=== PATIENT | female | born 1990 | race Caucasian/White ===

== ENCOUNTER 2020-04-01 11:25 | Emergency (ER) | payer BC ==
[~2020-04-01 11:25] MED LIST: LODINE CAP 300300 MG PO
[2020-04-01 12:03] LABS: HEMOGLOBIN 12.4 gm/dl (12.3-15.3); RED BLOOD COUNT 4.43 M/UL (4.00-5.10); WHITE BLOOD COUNT 9.7 K/UL (4.5-11.0)
[2020-04-01 12:27] LABS: BUN/CREATININE RATIO 16 (0-10)
[2020-04-01] MEDS ORDERED: KEPPRA1000 MG PO (15:36)
== END 2020-04-01 15:48 | disposition home or self-care (01) ==
LOC: ER1 11:25
PROVIDERS: Student in an Organized Health Care Education/Training Program
DX: R56.9 Unspecified convulsions (principal)
CPT/HCPCS: 70450; 80053; 81001; 82550; 82553; 83735; 83874; 84100; 84484; 84702; 85025; 85610; 85730; 93005; 96365; 96375; 99285; J1885; J1953; J2765

== ENCOUNTER 2020-04-16 22:41 | Emergency (ER) | payer BC ==
[~2020-04-16 22:41] MED LIST changes: +KEPPRA1000 MG PO
== END 2020-04-17 00:40 | disposition home or self-care (01) ==
LOC: ER1 22:41
DX: A87.9 Viral meningitis, unspecified (principal); G93.40 Encephalopathy, unspecified; H93.3X3 Disorders of bilateral acoustic nerves; Z79.899 Other long term (current) drug therapy; Z88.0 Allergy status to penicillin; Z88.2 Allergy status to sulfonamides; Z88.1 Allergy status to other antibiotic agents
CPT/HCPCS: 99282

== ENCOUNTER 2020-04-19 20:46 | Emergency (ER) | payer BC ==
[2020-04-19 21:26] LABS: HEMOGLOBIN 12.2 gm/dl (12.3-15.3); RED BLOOD COUNT 4.34 M/UL (4.00-5.10); WHITE BLOOD COUNT 7.3 K/UL (4.5-11.0)
[2020-04-19 21:46] LABS: BUN/CREATININE RATIO 14 (0-10)
[2020-04-20] MEDS ORDERED: VIMPAT100 MG PO (06:08)
== END 2020-04-20 06:49 | disposition home or self-care (01) ==
LOC: ER1 20:46
PROVIDERS: Emergency Medicine
DX: G40.909 Epilepsy, unspecified, not intractable, without status epilepticus (principal); Z88.0 Allergy status to penicillin; Z88.2 Allergy status to sulfonamides
CPT/HCPCS: 70450; 71045; 80053; 80307; 81001; 82550; 82553; 83605; 83690; 83735; 83874; 83880; 84100; 84439; 84443; 84484; 84703; 85025; 85610; 85730; 87040; 93005; 96365; 96367; 96375; 99285; G0480; J1953; J2060

== ENCOUNTER 2021-05-21 13:00 | Emergency (ER) | payer OTHER ==
[~2021-05-21 13:00] MED LIST changes: +VIMPAT100 MG PO
[2021-05-21 14:32] LABS: HEMOGLOBIN 11.6 gm/dl (12.3-15.3); RED BLOOD COUNT 4.47 M/UL (4.00-5.10); WHITE BLOOD COUNT 10.3 K/UL (4.5-11.0)
[2021-05-21 14:59] LABS: BUN/CREATININE RATIO 16 (0-10)
[2021-05-21] MEDS ORDERED: CYCLOBENZAPRINE10 MG PO (16:29)
[2021-05-21] MEDS ORDERED: MACROBID 100 M100 MG PO (16:29)
== END 2021-05-21 16:55 | disposition home or self-care (01) ==
LOC: ER1 13:00
PROVIDERS: Physician Assistant
DX: S00.93XA Contusion of unspecified part of head, initial encounter (principal); S30.1XXA Contusion of abdominal wall, initial encounter; S80.12XA Contusion of left lower leg, initial encounter; N39.0 Urinary tract infection, site not specified; Z88.0 Allergy status to penicillin; Z88.2 Allergy status to sulfonamides; V43.52XA Car driver injured in collision with other type car in traffic accident, initial encounter; Y92.410 Unspecified street and highway as the place of occurrence of the external cause
CPT/HCPCS: 70450; 80053; 81001; 82550; 82553; 83690; 84484; 84703; 85025; 99284; Q9967